=== PATIENT | male | born 1975 | race Caucasian/White ===

== ENCOUNTER 2024-05-06 09:28 | Outpatient (CLI) | payer BC | END 2024-05-06 09:29 | disposition home or self-care (01) | LOC: CSHCP 09:28 | PROVIDERS: ATTEND Internal Medicine | DX: Z12.2 Encounter for screening for malignant neoplasm of respiratory organs (principal); J43.9 Emphysema, unspecified; K76.0 Fatty (change of) liver, not elsewhere classified | CPT/HCPCS: 71271; 94060; 94664; 94726; 94729; 94760 ==